=== PATIENT | male | born 1975 | race Caucasian/White ===

== ENCOUNTER 2022-03-26 10:06 | Emergency (ER) | payer BC, SELFPAY ==
[2022-03-26 10:09] VITALS: BP 176/104; PULSE 103; RESP 20; TEMP 36.5; O2SAT 100; BMI 35.2
[2022-03-26] MEDS: Lidocaine HCl 2 % MPF 5 ML VIAL SUBCUT (11:09)
--- NOTE | 2022-03-26 11:19 | ED_ITS ---
HPI - Skin/Abscess/Foreign Bdy General Chief complaint: Skin/Abscess/Foreign Body Stated complaint: wound on R hand Time Seen by Provider: 03/26/22 10:34 Source: patient Mode of arrival: ambulatory Limitations: no limitations History of Present Illness HPI narrative: The patient is a 46 year old male presenting with an abscess of the ulnar aspect of the right hand that developed 5 days ago. The patient reports that approximately 6 weeks ago the head of a nail went into his hand, the injury was healing well, untill he was clenaing his pool last week. The patient states he believes the chemicals irritated the skin, and then his abscess developed a few days after. The patient reports both his and himself have popped the abscess at least two times in the past few days, though only blood came out. He reports pain at rest, and increase pain with palpation and movement. The patient denies any fever, chills, rash or other systemic signs. He reports he is up to date on Tentnus. complaint: abscess/boil Onset (ago): day(s) (5) Tetanus up to date: yes Location: R hand Severity: moderate Quality: sharp and constant Pain Consistency: constant Exacerbating factors: palpation and movement Context: other (Penetration with nail head ) Associated symptoms: denies other symptoms Treatments prior to arrival: attempted to drain pus at home Related Data Previous Rx's Medication Instructions Recorded cephalexin 500 mg capsule 500 mg PO QID 7 days #28 caps 03/26/22 Allergies Allergy/AdvReac Type Severity Reaction Status Date / Time No Known Allergies Allergy Unverified 03/04/20 14:56 [No Known Allergies*] Review of Systems Review of Systems: Constitutional :? Denies history of same, Denies any other sites involved, Denies IV drug use, Denies history of MRSA, Denies swollen glands, Denies injury, Denies Fever, Denies Chills, + Sig Pain, Denies Systemic symptoms Cardiovascular : No Chest Pain, No SOB Respiratory : No Dyspnea Gastrointestinal : No abdominal pain Musculoskeletal : No Joint Swelling Skin : + abscess on right hand with surrounding erythema, No skin laceration, No Foreign bodies, No spreading rash, Denies bites, Denies discharge, Neuro : No Weakness, No Numbness/tingling Yes all other systems are reviewed and are negative [facility] Social History Social History Advance Directives: No Advance Directives Information Provided: No Physical Exam Vital Signs: Vital Signs: Last Vital Signs Temp 97.7 F 03/26/22 10:09 Pulse 103 H 03/26/22 10:09 Resp 20 03/26/22 10:09 BP 176/104 H 03/26/22 10:09 Pulse Ox 100 03/26/22 10:09 O2 Del Method 03/26/22 10:09 BMI result Body Mass Index 35.2 Vital signs have been reviewed as normal and appeared to be correct. Blood pressure normal.? Heart rate normal.? Respiration rate normal. Temperature norm al.? Oxygen saturation normal. Appearance: Alert.?Oriented to person, place and time. No acute distress.?Normal affect. Eyes: Pupils equal, round and reactive to light.? ENT: Pharynx normal.?? Neck: Normal inspection.? Neck supple.?? CVS: Heart sounds normal. Normal heart rate and rhythm.? Pulses normal.?? Respiratory: No respiratory distress.? Lung sounds clear to auscultation bilaterally?? Abdomen: Soft and non-tender. Skin: Small skin abscess aproxametly 3.5 cm x 1 cm located on the ulnar/ lateral aspect of the right palm with surrounding erythema. Skin warm and dry.? Normal skin color. No Lacerations? ?? Extremities: No lower extremity edema.? Neuro: Moves all extremities spontaneously. Sensation intact bilaterally. No motor deficits.. Ambulates with normal steady gait. Course Course Course Narrative: 11:15 am -46 year old male presenting with an abscess of the ulnar/ lateral aspect of the right hand aproxametly 3.5 cm x 1cm that developed 5 days ago. The patient denies any signs of systemic infection, SIRS cirteria not met at this time, low suspicion for sepsis. Plan: -I&D abscess -D/C with PO antibiotics and plan to f/u with PCP or ER in a few days. Reevaluation(s) Reevaluation #1: I&D of abscess with a 11 blade. Minimal puss expressed, fluid primarily blood and a few clots , tolerated the procedure well. given presence of surrounding erythema, will cover prophylactically with cephalexin. Reviewed worrisome signs symptoms to return back to emergency department for. All questions were answered. Patient discharged home in stable condition. Time: 12:07 Procedures Abscess I/D Site: hand Side (if applicable): right Local Anesthetic: lidocaine 1% Amount of anesthesia used (mL): 2 Technique: incised with blade Amount of fluid expressed (mL): 5 Sent for culture/gram staining?: No Irrigation: Yes Packing used?: none Complications: pain and bleeding Discharge Plan Discharge Clinical Impression: Abscess of skin or subcutaneous tissue Patient Disposition: Home, Self-Care Instructions: Abscess (ED), Incision and Drainage (ED) Additional Instructions: Please complete the entire course of antibiotics as prescribed there to antibiotics to take for 1 week. You should have this re-evaluated in 2-3 days you may return back to emergency department or contact your primary care provider. Return to emergency department with any new or worsening symptoms or concerns. If you develop fevers, chills, increasing redness, pain, swelling, pus-like drainage, numbness or tingling to the hand, should be re-evaluated right away. Prescriptions: New cephalexin 500 mg capsule 500 mg PO QID 7 Days Qty: 28 0RF Referrals: Oleksandr Green III, MD [Primary Care Provider] - Interventions: ED Discharge Assessment Last Done: 03/26/22 12:32 Discharge Date/Time: 03/26/22 12:33
== END 2022-03-26 12:33 | disposition home or self-care (01) ==
PROVIDERS: Emergency Provider Emergency Medicine; PCP Internal Medicine
DX: L02.511 Cutaneous abscess of right hand (principal)
CPT/HCPCS: 10060; 73130; 99283; 99284

== ENCOUNTER 2022-03-27 14:05 | Emergency (ER) | payer OTHER, BC, SELFPAY ==
--- NOTE | ~2022-03-27 | XR_ITS ---
EXAMINATION: XR FOOT, RIGHT CLINICAL INFORMATION: Right foot pain and swelling after injury COMPARISON: None TECHNIQUE: AP, lateral, and oblique views of the right foot. FINDINGS: There is a double density at the calcaneus with abnormal lucencies, suggestive of calcaneal fracture. CT evaluation suggested toward further clarification. The metatarsals appear intact. No focal midfoot abnormality. XR/XR foot RT min 3V IMPRESSION: Findings suggestive of calcaneal fracture. CT evaluation suggested toward further clarification.
--- NOTE | ~2022-03-27 | XR_ITS ---
EXAMINATION: XR KNEE, RIGHT CLINICAL INFORMATION: Right knee axial loading injury COMPARISON: None TECHNIQUE: Four views of the right knee. FINDINGS: Femoral condyles appear to be intact. No distinct abnormal joint space narrowing medially or laterally. No significant suprapatellar effusion. Patella appears intact. XR/XR knee RT 4V IMPRESSION: No evidence for acute process.
--- NOTE | ~2022-03-27 | XR_ITS ---
EXAMINATION: XR ANKLE, RIGHT 3 views CLINICAL INFORMATION: Pain and swelling status post injury COMPARISON: None TECHNIQUE: AP, lateral, and mortise views of the right ankle. FINDINGS: There is been previous fixation of the right ankle with plate and screws at the distal right fibula and an oblique screw in the medial malleolus. Tiny calcifications are seen medial to the medial malleolus which could potentially reflect tiny chip fragments although the finding could be chronic. There is prominent narrowing of the tibiotalar joint with spurring changes. No distinct osteochondral lesion. Plantar calcaneal spur noted. Small ossicles adjacent to the lateral aspect of the talus. There is a double density at the calcaneus with an obliquely directed lucency. A calcaneal fracture is considered. XR/XR ankle RT min 3V IMPRESSION: Findings suggestive of calcaneal fracture. CT evaluation suggested toward further clarification. Prominent degenerative and postsurgical changes. Tiny calcifications medial to the medial malleolus could reflect minimal chip fragments although the finding could be chronic. There are no old films for comparison.
[2022-03-27 14:50] VITALS: BP 141/88; PULSE 91; RESP 16; TEMP 36.5; O2SAT 100; BMI 35.2
--- NOTE | 2022-03-27 16:02 | ED_ITS ---
HPI - Extremity Injury (Lower) General Chief Complaint: Extremity Injury, Lower Stated Complaint: R FOOT INJ AT WORK Time Seen by Provider: 03/27/22 15:57 Source: patient Mode of arrival: ambulatory Limitations: no limitations History of Present Illness HPI Narrative: 47 year old male presents to the ED w/ right sided foot pain, particularly to the right heel, patient tells me he was on a boon lift at work and the left went down very fast hitting the ground, he tells me he went up in the air and then hit the ground landing on his right foot he tells me that when he hit the ground he fell over as his foot was still in a stirrup immediately started experiencing severe pain to the right heel, he tells me he also felt some pain to the arch of his foot. He tells me since then he has noted significant swelli ng and pain with range of motion of fingers. Patient describes the pain as 10/10. Patient denies numbness, tingling, back pain, difficulties with range of motion to other leg or knee, hip on the same side. When patient fell he did not hit his head, no loss of consciousness. This was work related injury Related Data Previous Rx's Medication Instructions Recorded cephalexin 500 mg capsule 500 mg PO QID 7 days #28 caps 03/26/22 oxycodone 5 mg tablet 5 mg PO Q8H PRN pain #10 tabs 03/27/22 Allergies Allergy/AdvReac Type Severity Reaction Status Date / Time No Known Allergies Allergy Unverified 03/04/20 14:56 [No Known Allergies*] Review of Systems Review of Systems: Constitutional : No Weight loss, No Fever, No Chills, No Fatigue, No Malaise ENT/Mouth : No sore throat, No Rhinorrhea Eyes: No Eye Pain, No Swelling, No Redness Cardiovascular : No Chest Pain, No SOB, No Dyspnea on Exertion, No Orthopnea, No Edema, No Palpitations Respiratory : No Cough, No Sputum, No Wheezing Gastrointestinal : No Nausea, No Vomiting, No Diarrhea, No Constipation, No abdominal Pain, No Hematochezia, No Melena Genitourinary : No Dysuria, No Urinary Frequency, No Hematuria, Musculoskeletal : No joint pain, No Myalgias, No Joint Swelling Skin : No Skin Lesions, No rash Neuro : No Weakness, No Numbness, No Dizziness, No Headache Psych : No Anxiety/Panic, No Depression All other systems reviewed and are negative Yes all other systems are reviewed and are negative [facility] Past Medical History Attestation statement: The following information was validated with the patient. Source: old records reviewed and nursing notes reviewed Physical Exam Vital Signs: Vital Signs: Last Vital Signs Temp 97.7 F 03/27/22 14:50 Pulse 91 03/27/22 14:50 Resp 16 03/27/22 14:50 BP 141/88 H 03/27/22 14:50 Pulse Ox 100 03/27/22 14:50 O2 Del Method 03/27/22 14:50 BMI result Body Mass Index 35.2 vital signs stable Appearance: Alert.? Oriented X3.? No acute distress.? Head: Normocephalic, atraumatic, no step-offs or deformities Eyes: Pupils equal, round and reactive to light.? ENT: Pharynx normal.? Neck: Normal inspection.? Neck supple.? CVS: Normal heart rate and rhythm.? Pulses normal.? Respiratory: No respiratory distress.? Breath sounds normal.? Abdomen: Soft and nontender.? Skin: Skin warm and dry.? Normal skin color.? Normal skin turgor.? Extremities: No lower extremity edema.? No calf ttp. 5/5 strength to bilateral upper and lower extremities. Patient with swelling to the right heel area, pain with palpation to right heel. Normal left foot. 2+ dorsalis pedis, posterior tibialis and anterior tibialis pulses equal bilateral. No footdrop. Normal sensation to bilateral lower extremities. Capillary refill within normal limits bilaterally to lower extremities. Patient unable to bear weight to right lower extremity. Neuro: Oriented X 3.? No motor deficit.? No sensory deficit. CN 2-12 intact Course Reevaluation(s) Reevaluation #1: x-ray showing calcaneal fracture on the right. Patient will be placed in a posterior splint with extra bulky dressing, patient will be given crutches and has been instructed to be nonweightbearing. Will have him follow-up with orthopedics. I did spend time explaining to patient's signs of compartment syndrome and what to lookout for. Advised to return with new or worsening symptoms. Outlined on discharge. Comfortable discharge home. Patient will be sent home with a short supply of oxycodone, went over safe use of this medication. Advised him to only take this medication with severe pain, advised him to avoid alcohol and to not drive or operate machinery while taking this, also told him that this medication is only to be used by him and not to be share with other people. Patient verbalizes understanding. Comfortable discharge Time: 16:06 Reevaluation #2: After placement of splint patient's neurovascular status intact, patient will follow-up with the orthopedic team, patient was given crutches, educated on proper use and he demonstrated proper use. Patient received oxycodone the department patient's will drive him home. Time: 16:22 MDM - Extremity Injury (Lower) MDM Narrative Medical decision making narrative: 1600 47-year-old male presents with right heel pain status post work related injury, denying numbness and tingling, unable to bear weight to the right lower extremity. This injury happened today. Physical examination significant for swelling to the right heel, neurovasc ularly intact, patient unable to bear weight to right lower extremity. Point tenderness to palpation around the right heel. Concerns for high impact injury such as calcaneal fracture, or ankle fracture. Unlikely dislocated. Neurovascularly intact. No signs of compartment syndrome on exam. No signs of evident acute ligament in tears. Plan at this time is to obtain imaging No back pain, Low suspicion for compression fractures, no signs of cauda equina, no saddle paresthesias, normal reflexes bilateral lower extremities. No red flag symptoms such as urinary / bowel incontinence/retention. Medical Records Attestation: I reviewed the patient's medical records. Lab Data Attestation: I reviewed the patient's lab results. Critical Care Time Critical Care Time Critical Care Time: No Discharge Plan Discharge Clinical Impression: Calcaneal fracture, Fall, Work related injury Patient Disposition: Home, Self-Care Instructions: Crutch Instructions (ED), Foot Fracture in Adults (ED), Calcaneal Fracture (ED), R.I.C.E. Treatment (ED) Additional Instructions: Take your medications as prescribed. If you were prescribed antibiotics today, it is important that you take your medication to their entirety, do not skip any doses, do not finish them early. Follow-up with your primary care provider this week. Return to the emergency department with new or worsening symptoms. Such as fevers, chills, chest pain, shortness of breath, nausea, vomiting, dizziness, headache, vision changes, lethargy , back pain loss of bladder or bowel control, numbness, tingling, loss of sensation, severe swelling, severe pain In case of emergency call 911 Please follow-up with the work connection. I educated on signs of compartment syndrome, you need to follow-up with orthopedics as soon as possible. Return if you cannot feel your foot, increased swelling, severe pain, loss of sensation or any new or worsening symptoms. You are not to bear weight to the right lower extremity. Please use crutches as prescribed. Please read the handout provided. I attest that I have reviewed patients [employer], and at the time prescribing the patient a controlled substance is appropriate based off of patients diagnosis and treatment plan. Prescriptions: New oxycodone 5 mg tablet 5 mg PO Q8H PRN (Reason: pain) Qty: 10 0RF Rx Instructions: Partial Fill upon patient request. No Action cephalexin 500 mg capsule 500 mg PO QID 7 Days Qty: 28 0RF Referrals: Oleksandr Green III, MD [Primary Care Provider] - 2 days Stand Alone Forms: Work/School Release
[2022-03-27] MEDS: oxyCODONE HCl Immed Release 5 MG TABLET PO (16:17)
== END 2022-03-27 17:02 | disposition home or self-care (01) ==
PROVIDERS: Emergency Provider Emergency Medicine; PCP Internal Medicine
DX: S92.001A Unspecified fracture of right calcaneus, initial encounter for closed fracture (principal); X50.1XXA Overexertion from prolonged static or awkward postures, initial encounter; Y93.89 Activity, other specified; Y92.9 Unspecified place or not applicable; Y99.0 Civilian activity done for income or pay
CPT/HCPCS: 29515; 73564; 73610; 73630; 99283; 99284

== ENCOUNTER 2022-03-30 | Outpatient (REF) | payer OTHER, BC, SELFPAY ==
--- NOTE | ~2022-03-30 | XR_ITS ---
EXAMINATION: XR CALCANEUS, RIGHT CLINICAL INFORMATION: Calcaneal fracture. COMPARISON: Radiographs right ankle and foot 03/27/2022. TECHNIQUE: Lateral and axial views of the right calcaneus were obtained for 2 views. FINDINGS: There is comminuted fracture involving the mid to anterior calcaneus best appreciated on the axial view. The retrocalcaneal recess is preserved. There is punctate posterior and moderate plantar calcaneal spur. No dislocation. Again, post surgical changes are seen distal fibula and tibia. Visualized hardware intact. There are degenerative changes ankle joint with joint narrowing and spurring anterior and posterior tibia and dorsal anterior talus. XR/XR calcaneus RT min 2V IMPRESSION: Comminuted fracture mid to anterior calcaneus best appreciated on axial view. CT hindfoot would be helpful for further characterization.
== END 2022-03-30 00:01 | disposition home or self-care (01) ==
LOC: HO.HOSX
PROVIDERS: Visit Provider Physician Assistant
DX: S92.001A Unspecified fracture of right calcaneus, initial encounter for closed fracture (principal)
CPT/HCPCS: 73650; 99202

== ENCOUNTER 2022-04-14 09:04 | Outpatient (REF) | payer OTHER, BC, SELFPAY ==
--- NOTE | ~2022-04-14 | CT_ITS ---
EXAMINATION: CT FOOT WITHOUT CONTRAST, RIGHT CLINICAL INFORMATION: Calcaneal fracture. COMPARISON: X-ray 03/30/2022. TECHNIQUE: Axial imaging. Sagittal and coronal reconstructions. This CT examination was performed using dose optimization techniques as appropriate, variously including the following: *Automated exposure control *Adjustment of mA and/or kV according to patient size (this includes techniques or standardized protocols for targeted exams where dose is matched to indication/reason for exam; i.e. extremities or head) *Use of iterative reconstruction technique DLP: 180 mGy-cm FINDINGS: There is a markedly comminuted, displaced calcaneal fracture. This includes a longitudinally oriented fracture plane in the medial aspect of the calcaneus, involving the posterior/mid calcaneus. There are extensive comminuted fracture planes in the mid/anterior calcaneus. Bony displacement medially and laterally. Multiple fracture planes extend through the posterior facet into the posterior subtalar joint; this includes fracture plane with displacement of approximately 5 mm. (Transverse). Comminuted fracture planes extend to the articular surface at the calcaneocuboid joint, with displacement and disruption of the articular surface. There are prominent fracture planes extending into the sustentaculum talus and intra-articular extension in the middle subtalar joint. Postsurgical changes with hardware in the distal fibula, and old, healed distal fibular fracture. There is an old, healed distal tibial fracture. There is a screw in the medial malleolus. Severe talocrural joint arthritis, marked joint space loss, osteophytes, sclerosis. Small ossific densities adjacent to the fibula, could be related to old trauma versus loose bodies. Small ossifications proximal to the navicula, probable ossicles. Limited evaluation of the tendons, with the proximal tendons grossly appearing intact. Achilles tendon is grossly intact. CT/CT foot RT wo IV con IMPRESSION: Markedly comminuted displaced intra-articular calcaneal fracture, as described above. Intra-articular fracture involves the posterior subtalar joint, middle subtalar joint, and the calcaneocuboid joint. Severe talocrural joint arthritis. Small ossifications adjacent to the lateral malleolus, could represent sequelae of trauma versus loose bodies. Status postsurgical fixation of a distal fibular healed fracture. Healed distal tibial fracture. Additional findings and details as above.
== END 2022-04-14 09:05 | disposition home or self-care (01) ==
LOC: HO.CT 09:04
PROVIDERS: PCP Internal Medicine; Visit Provider Physician Assistant
DX: S92.001A Unspecified fracture of right calcaneus, initial encounter for closed fracture (principal)
CPT/HCPCS: 73700

== ENCOUNTER → 2022-04-26 12:07 | Outpatient (BNVA) | payer OTHER, BC, SELFPAY | PROVIDERS: PCP Internal Medicine; Visit Provider Physician Assistant | DX: S92.001D Unspecified fracture of right calcaneus, subsequent encounter for fracture with routine healing (principal) | CPT/HCPCS: 29405 ==

== ENCOUNTER → 2022-05-16 12:46 | Outpatient (BNVA) | payer OTHER, BC, SELFPAY | PROVIDERS: PCP Internal Medicine; Visit Provider Physician Assistant | DX: S92.001A Unspecified fracture of right calcaneus, initial encounter for closed fracture (principal) | CPT/HCPCS: 29405; 99212 ==

== ENCOUNTER 2022-05-31 07:07 | Outpatient (REF) | payer OTHER, BC, SELFPAY ==
--- NOTE | ~2022-05-31 | XR_ITS ---
EXAMINATION: XR calcaneus RT min 2V CLINICAL INFORMATION: Reason for Exam S92.001A - Unspecified fracture of right calcaneus, initial encounter fo... COMPARISON: Foot radiographs 03/30/2022, foot CT 04/14/2022 TECHNIQUE: Two views of the calcaneus XR/XR calcaneus RT min 2V FINDINGS/IMPRESSION: * Redemonstration of a comminuted fracture of the calcaneus, with some decreased conspicuity of the fracture margins which may reflect ongoing healing. * Stable chronic postsurgical deformity of the distal tibia with a fibular surgical screw and tibial plate and screw fixation. * Severe osteoarthritis of the ankle with loss of tibiotalar and talocalcaneal joint space. * Trace tibiotalar joint effusion.
== END 2022-05-31 07:08 | disposition home or self-care (01) ==
LOC: HO.HOSX 07:07
PROVIDERS: Visit Provider Physician Assistant
DX: S92.001A Unspecified fracture of right calcaneus, initial encounter for closed fracture (principal)
CPT/HCPCS: 73650

== ENCOUNTER 2022-07-12 13:57 | Outpatient (REF) | payer BC, SELFPAY ==
--- NOTE | ~2022-07-12 | XR_ITS ---
EXAMINATION: XR CALCANEUS, RIGHT CLINICAL INFORMATION: Fracture of the right calcaneus COMPARISON: 05/31/2022 TECHNIQUE: Lateral and axial views of the right calcaneus were obtained. FINDINGS: Screw fixation noted at the medial malleolus. Plate and screw fixation hardware seen at the distal lower leg. The calcaneal fracture has unchanged alignment. Persistent cortical offset. There is some callus formation. Prominent plantar heel spur. Diffuse osteopenia. XR/XR calcaneus RT min 2V IMPRESSION: Unchanged alignment of the calcaneal fracture with some callus formation.
== END 2022-07-12 13:58 | disposition home or self-care (01) ==
LOC: HO.HOSX 13:57
PROVIDERS: Visit Provider Physician Assistant
DX: S92.001D Unspecified fracture of right calcaneus, subsequent encounter for fracture with routine healing (principal)
CPT/HCPCS: 73650

== ENCOUNTER 2022-08-23 14:20 | Outpatient (REF) | payer BC, SELFPAY ==
--- NOTE | ~2022-08-23 | XR_ITS ---
EXAMINATION: XR CALCANEUS, RIGHT CLINICAL INFORMATION: Calcaneal fracture COMPARISON: 07/12/2022 TECHNIQUE: Lateral and axial views of the right calcaneus were obtained. FINDINGS: Distal tibial and talocalcaneal surgical hardware without evidence of hardware complication and degenerative changes of the tibiotalar joint. Unchanged alignment of the calcaneal fracture with surrounding callus formation. XR/XR calcaneus RT min 2V IMPRESSION: Unchanged alignment of the calcaneal fracture with surrounding callus formation. No evidence of hardware complication.
== END 2022-08-23 14:21 | disposition home or self-care (01) ==
LOC: HO.HOSX 14:20
PROVIDERS: Visit Provider Physician Assistant
DX: S92.001A Unspecified fracture of right calcaneus, initial encounter for closed fracture (principal)
CPT/HCPCS: 73650; 99212

== ENCOUNTER 2022-08-25 10:04 | Emergency (ER) | payer BC, SELFPAY ==
--- NOTE | ~2022-08-25 | CT_ITS ---
EXAMINATION: CT ABDOMEN AND PELVIS WITHOUT CONTRAST CLINICAL INFORMATION: Abdominal pain, diarrhea, leukocytosis. COMPARISON: None. TECHNIQUE: Multidetector volumetric imaging was performed from the superior aspect of the liver through the pubic symphysis. Sagittal and coronal reformatted images were obtained on the technologist's workstation. This CT examination was performed using dose optimization techniques as appropriate, variously including the following: *Automated exposure control *Adjustment of mA and/or kV according to patient size (this includes techniques or standardized protocols for targeted exams where dose is matched to indication/reason for exam; i.e. extremities or head) *Use of iterative reconstruction technique DLP: 925 mGy-cm FINDINGS: LUNG BASES: No focal consolidation or pleural effusion. A 2 mm nodule in the right lung base (4:133) seems to be intrabronchial and likely represents mucous secretions. LIVER, GALLBLADDER, AND BILIARY TREE: The liver is enlarged measuring 19.4 cm craniocaudally and demonstrates decreased parenchymal attenuation most suggestive of hepatic steatosis. No discrete focal liver lesion noted in this limited noncontrast examination. Normal appearance of the gallbladder. No biliary duct dilatation. PANCREAS: Limited noncontrast examination. No peripancreatic fat stranding or free fluid. The main duct is nondilated. SPLEEN: Unremarkable. ADRENAL GLANDS: Unremarkable. KIDNEYS AND URETERS: Limited noncontrast examination. No nephrolithiasis or hydronephrosis. No perinephric fat stranding. BLADDER: Unremarkable. GASTROINTESTINAL TRACT: Nonspecific gastric distention. The small bowel is nondilated. Normal appendix. Colonic diverticulosis without pericolonic inflammatory changes to suspect acute diverticulitis. No evidence of bowel obstruction. ABDOMINAL WALL: No significant hernia is appreciated. LYMPH NODES: No pathologically enlarged lymph nodes. VASCULAR: Limited noncontrast examination. Atherosclerotic disease. Abdominal aorta is of normal diameter. PELVIC VISCERA: Unremarkable. OSSEOUS STRUCTURES: No acute or aggressive appearing osseous abnormalities. CT/CT abdomen pelvis wo IV con IMPRESSION: The lack of intravenous contrast limits evaluation of the solid visceral organs including the liver, spleen, pancreas, and kidneys. 1. Hepatomegaly and hepatic steatosis. 2. Diverticulosis but no evidence of acute diverticulitis. 3. Nonspecific gastric distention, recommend correlation with recent postprandial state, gastroparesis or gastric outlet obstruction.
[2022-08-25 10:44] VITALS: BP 155/96; PULSE 115; RESP 18; TEMP 36.4; O2SAT 96; BMI 38.8
--- NOTE | 2022-08-25 11:25 | MHC.EDTECH ---
Labs/covid collected and sent
[2022-08-25 11:27] LABS: MANUAL DIFF FLAG NO
[2022-08-25 11:28] LABS: Basophils Percent Auto 0.2 % (0-2); Eosinophils Percent Auto 0.1 % (0-4); Hematocrit 40.9 % (42.0-52.0); Hemoglobin 13.8 g/dl (14.0-18.0); Imm Gran Abs Auto 0.08 X10*3/uL (0.00-0.03); Imm Gran Pct Auto 0.5 % (0.0-0.4); Lymphocytes Absolute Auto 3.3 X10*3/uL (1.2-4.9); Lymphocytes Percent Auto 19.9 % (20-40); Mean Corpuscular HGB Conc 33.7 g/dl (31.0-36.0); Mean Corpuscular Hemoglobin 30.1 pg (27.0-33.0); Mean Corpuscular Volume 89.3 fL (80.0-98.0); Mean Platelet Volume 9.8 fL (9.4-12.4); Monocytes Percent Auto 5.8 % (2-11); Neutrophils Absolute Auto 12.3 x10*3/uL (2.0-8.3); Neutrophils Percent Auto 73.5 % (45-73); Platelet Count 315 X10*3/uL (160-400); Red Blood Count 4.58 X10*6/uL (4.60-5.80); Red Cell Distribution Width 13.9 % (11.0-16.0); White Blood Count 16.7 X10*3/uL (4.8-10.8)
[2022-08-25 11:43] LABS: Alanine Aminotransferase 37 U/L (0-40); Albumin Level 4.7 g/dL (3.5-5.0); Alkaline Phosphatase 84 U/L (39-117); Anion Gap 14 (12-20); Aspartate Amino Transferase 25 U/L (5-37); Bilirubin Total 0.4 mg/dL (0.0-1.0); Blood Urea Nitrogen 13 mg/dL (9-16); Calcium 9.3 mg/dL (8.4-10.2); Carbon Dioxide 24 mmol/L (22-29); Chloride 105 mmol/L (96-108); Creatinine Clr Calc Pharmacy 122.4; Estimated Glomerular Filt Rate > 60; Glucose Random 95 mg/dL (60-115); Potassium 4.1 mmol/L (3.3-5.1); Sodium 139 mmol/L (135-145); Total Protein 7.4 g/dL (6.5-8.0)
[2022-08-25 12:31] LABS: Influenza A PCR NEGATIVE (Negative); Influenza B PCR NEGATIVE (Negative); Resp Syncy Virus RNA Qual PCR NEGATIVE (Negative); SARS COV2 PCR INHOUSE NEGATIVE (Negative)
--- NOTE | 2022-08-25 15:28 | ED_ITS ---
HPI - Nausea/Vomiting/Diarrhea General Chief complaint: Abdominal Pain <TONY Wilks - Last Filed: 08/25/22 15:34> Stated complaint: vomting, diarrhea <TONY Wilks - Last Filed: 08/25/22 15:34> Time Seen by Provider: 08/25/22 17:16 <TONY Wilks - Last Filed: 08/25/22 15:34> Source: patient and RN notes reviewed <Herminio Flores - Last Filed: 08/25/22 18:58> Mode of arrival: ambulatory <Herminio Flores - Last Filed: 08/25/22 18:58> Limitations: no limitations <Herminio Flores - Last Filed: 08/25/22 18:58> History of Present Illness HPI Narrative: 47-year-old male presents for evaluation of abdominal pain vomiting diarrhea. patient reports his symptoms started about 1 week ago and seemed to be worse over the last 3 days. He believes that his vomitus is full of bile. Patient reports that he has been taking ibuprofen aspirin alternating for the last few months since required foot surgery. he also reports that he took an antibiotic for few days due to what he felt was a dental infection. this is a few days before the onset of the symptoms. The antibiotic he had residual from his foot surgery but he does not know name of the antibiotic the patient denies any recent travel he denies any previous abdominal surgeries he rates his overall discomfort as 4/10. Denies any black or bloody stool <Herminio Flores - Last Filed: 08/25/22 18:58> Related Data Home medications: Home Medications Medication Instructions Recorded Confirmed fluticasone propionate 50 1 - 2 spray intranasal DAILY 03/30/22 08/23/22 mcg/actuation nasal spray,suspension losartan 25 mg tablet 25 mg PO DAILY 03/30/22 08/23/22 naproxen 500 mg tablet 500 mg PO BID 07/12/22 08/23/22 Previous Rx's Medication Instructions Recorded celecoxib 200 mg capsule (Celebrex) 200 mg PO BID 30 days #60 caps 07/14/22 ibuprofen 800 mg tablet 800 mg PO TID PRN swelling 1 month 08/23/22 #90 tabs metoclopramide HCl 10 mg tablet 10 mg PO Q6H PRN nausea and 08/25/22 (Reglan) vomiting #20 tabs omeprazole 20 mg capsule,delayed 20 mg PO DAILY #14 caps 08/25/22 release <TONY Wilks - Last Filed: 08/25/22 15:34> Allergies/Adverse reactions: Allergies Allergy/AdvReac Type Severity Reaction Status Date / Time No Known Allergies Allergy Verified 08/23/22 12:52 [No Known Allergies*] <TONY Wilks - Last Filed: 08/25/22 15:34> Review of Systems Constitutional: Constitutional: Reports as per HPI, Denies chills and Denies fatigue <Herminio Flores - Last Filed: 08/25/22 18:58> Cardiovascular: Cardiovascular: Denies chest pain and Denies dyspnea <Herminio Flores - Last Filed: 08/25/22 18:58> Respiratory: Respiratory: Denies cough and Denies dyspnea <Herminio Flores - Last Filed: 08/25/22 18:58> Gastrointestinal: Gastrointestinal: Reports abdominal pain, Denies consti pation, Reports dyspepsia, Denies fecal incontinence, Reports diarrhea, Reports loose stools, Reports vomiting and Denies hematemesis <Herminio Flores - Last Filed: 08/25/22 18:58> Genitourinary: Genitourinary: Denies difficulty urinating and Denies dysuria <Herminio Flores - Last Filed: 08/25/22 18:58> Endocrine: Endocrine: Denies fatigue <Herminio lFores - Last Filed: 08/25/22 18:58> [facility] Social History Social History: Social History Alcohol intake: current Alcohol intake frequency: holidays/special occasions only Smoked in Last 30 Days: Yes Use of substances other than those prescribed or required for medical reasons: No Advance Directives: No Advance Directives Information Provided: No <TONY Wilks - Last Filed: 08/25/22 15:34> Physical Exam Vital Signs: Vital Signs: Last Vital Signs Temp 97.7 F 08/25/22 18:44 Pulse 103 H 08/25/22 18:44 Resp 16 08/25/22 18:44 BP 141/80 H 08/25/22 18:44 Pulse Ox 94 08/25/22 18:44 O2 Del Method 08/25/22 18:44 BMI result Body Mass Index 38.8 <TONY Wilks - Last Filed: 08/25/22 15:34> Vital Signs: Last Vital Signs Temp 97.7 F 08/25/22 18:44 Pulse 103 H 08/25/22 18:44 Resp 16 08/25/22 18:44 BP 141/80 H 08/25/22 18:44 Pulse Ox 94 08/25/22 18:44 O2 Del Method 08/25/22 18:44 BMI result Body Mass Index 38.8 <Herminio Flores - Last Filed: 08/25/22 18:58> Const: General: cooperative, healthy appearing and comfortable <Herminio Flores - Last Filed: 08/25/22 18:58> Orientation/consciousness: oriented to person, oriented to place, oriented to time and patient oriented x3 <Herminio Flores - Last Filed: 08/25/22 18:58> Limitations: no limitations <Herminio Flores - Last Filed: 08/25/22 18:58> Resp: Effort & Inspection: normal respiratory effort and able to speak in complete sentences <Herminio Flores - Last Filed: 08/25/22 18:58> Auscultation: clear to auscultation bilaterally <Herminio Flores - Last Filed: 08/25/22 18:58> GI: Inspection: Yes normal to inspection and No distended <Herminio Flores - Last Filed: 08/25/22 18:58> Palpation (GI): Soft to palpation, nontender, no guarding and not rigid <Herminio Flores - Last Filed: 08/25/22 18:58> Auscultation: normoactive bowel sounds <Herminio Flores - Last Filed: 08/25/22 18:58> Rectal Exam - Male: Yes deferred <Herminio Flores - Last Filed: 08/25/22 18:58> Skin: General skin exam: no rashes or lesions noted <Herminio Flores - Last Filed: 08/25/22 18:58> Neuro: General: oriented to person, oriented to place, oriented to time and patient oriented x3 <Herminio Flores - Last Filed: 08/25/22 18:58> Cranial nerves: Yes CN's II-XII intact bilaterally and Yes Bilaterally intact EOM present <Herminiodonya Flores - Last Filed: 08/25/22 18:58> Extrem: General: Yes full ROM <Herminio Flores - Last Filed: 08/25/22 18:58> Psych: Appearance: grossly normal <Herminiodonya Flores - Last Filed: 08/25/22 18:58> Course Course Course Narrative: RME - 47 y/o male presents to the ER for evaluation of acid reflex, recurrent vomiting x1.5-2 weeks along with new onset of frequent yellow, watery stool that started this week. Took imodium today and had developed central abdominal pains. Was recently on abx for dental infection. WBC 16.7K, chemistry without any major metabolic derrangments. Plan: add Cdiff, GI panel, CT abd/pelvis <TONY Wilks - Last Filed: 08/25/22 15:34> Reevaluation(s) Reevaluation #1: patient has not had any further diarrhea in the emergency department, he feels better after treatment. I discussed at length with workup with some fluids will be discharged with Protonix, Reglan and GI follow-up for patient encouraged to avoid NSAIDs, aspirin, alcohol, spicy greasy foods as this may trigger further dyspepsia. he will continue the Imodium for the couple of days as needed <Herminio Woodardy - Last Filed: 08/25/22 18:58> Time: 18:54 <Herminio Woodardy - Last Filed: 08/25/22 18:58> Medications Administered Generic Name Dose Route Start Last Admin Trade Name Freq PRN Reason Stop Dose Admin Sodium Chloride 1,000 mls @ 999 mls/hr 08/25/22 18:00 08/25/22 18:50 Ns IV 08/25/22 19:00 999 mls/hr .[id number] MARIE Administration Discontinued Medications Generic Name Dose Route Start Last Admin Trade Name Freq PRN Reason Stop Dose Admin Metoclopramide HCl 10 mg 08/25/22 17:57 08/25/22 18:48 Metoclopramide Hcl 10 Mg/2 Ml Vial IVPUSH 08/25/22 17:58 10 mg ONCE ONE Administration Pantoprazole Sodium 40 mg 08/25/22 17:57 08/25/22 18:48 Pantoprazole Sodium 40 Mg/10 Ml Vial IVPUSH 08/25/22 17:58 40 mg ONCE ONE Administration <TONY Wilks - Last Filed: 08/25/22 15:34> Medications Administered Generic Name Dose Route Start Last Admin Trade Name Freq PRN Reason Stop Dose Admin Sodium Chloride 1,000 mls @ 999 mls/hr 08/25/22 18:00 08/25/22 18:50 Ns IV 08/25/22 19:00 999 mls/hr .[id number] MARIE Administration Discontinued Medications Generic Name Dose Route Start Last Admin Trade Name Freq PRN Reason Stop Dose Admin Metoclopramide HCl 10 mg 08/25/22 17:57 08/25/22 18:48 Metoclopramide Hcl 10 Mg/2 Ml Vial IVPUSH 08/25/22 17:58 10 mg ONCE ONE Administration Pantoprazole Sodium 40 mg 08/25/22 17:57 08/25/22 18:48 Pantoprazole Sodium 40 Mg/10 Ml Vial IVPUSH 08/25/22 17:58 40 mg ONCE ONE Administration <Herminio Flores - Last Filed: 08/25/22 18:58> Medical Decision Making Medical Decision Making MDM Narrative: 47-year-old healthy male presents for evaluation of dyspepsia, vomiting and diarrhea. He had a workup including labs are significant for a nonspecific leukocytosis, electrolytes were without concerning abnormalities. [facility] but did show some concern for gastroparesis versus gastric outlet syndrome. The patient had a C diff test that was negative. GI panel still pending. Patient's vital signs are stable. We will treat with IV fluids, Reglan for the gastroparesis. He has been taking Imodium at home with some relief of his diarrhea today. patient likely has some degree of GERD given his chronic NSAID use, , therefore he was treated with Protonix. Still awaiting GI panel, but the patient likely be discharged with GI follow-up <Herminio Flores - Last Filed: 08/25/22 18:58> Differential Diagnosis heartburn Dyspepsia Gastroparesis Bowel obstruction Ileus Biliary disease Bowel perforation SOFIE C diff Colitis Diverticulitis <Herminio Flores - Last Filed: 08/25/22 18:58> Lab Data MDM Lab Attestation statement: I reviewed the patient's lab results. <Herminio Flores - Last Filed: 08/25/22 18:58> Result Diagrams: 08/25/22 11:23 08/25/22 11:23 <TONY Wilks - Last Filed: 08/25/22 15:34> Labs: Lab Results 08/25/22 08/25/22 08/25/22 Range/Units 11:22 11:23 11:23 WBC 16.7 H (4.8-10.8) X10*3/uL RBC 4.58 L (4.60-5.80) X10*6/uL Hgb 13.8 L (14.0-18.0) g/dl Hct 40.9 L (42.0-52.0) % MCV 89.3 (80.0-98.0) fL MCH 30.1 (27.0-33.0) pg MCHC 33.7 (31.0-36.0) g/dl RDW 13.9 (11.0-16.0) % Plt Count 315 (160-400) X10*3/uL MPV 9.8 (9.4-12.4) fL Immature Gran % (Auto) 0.5 H (0.0-0.4) % Neut % (Auto) 73.5 H (45-73) % Lymph % (Auto) 19.9 L (20-40) % [place] % (Auto) 5.8 (2-11) % Eos % (Auto) 0.1 (0-4) % Baso % (Auto) 0.2 (0-2) % Lymph # (Auto) 3.3 (1.2-4.9) X10*3/uL [place] # (Auto) 1.0 (0.1-1.2) X10*3/uL Eos # (Auto) 0.0 (0.0-0.4) X10*3/uL Baso # (Auto) 0.0 (0.0-0.2) X10*3/uL Abs Immat Gran (auto) 0.08 H (0.00-0.03) X10*3/uL Absolute Neuts (auto) 12.3 H (2.0-8.3) x10*3/uL Absolute Nucleated RBC 0.000 (0.0-0.012) X10*3/uL Nucleated RBC % (auto) 0.0 (0.0-0.2) /100WBC Sodium 139 (135-145) mmol/L Potassium 4.1 (3.3-5.1) mmol/L Chloride 105 (96-108) mmol/L Carbon Dioxide 24 (22-29) mmol/L Anion Gap 14 (12-20) BUN 13 (9-16) mg/dL Creatinine 1.04 (0.5-1.4) mg/dL Estim Creat Clear Calc 122.4 Estimated GFR > 60 Random Glucose 95 (60-115) mg/dL Calcium 9.3 (8.4-10.2) mg/dL Total Bilirubin 0.4 (0.0-1.0) mg/dL AST 25 (5-37) U/L ALT 37 (0-40) U/L Alkaline Phosphatase 84 (39-117) U/L Total Protein 7.4 (6.5-8.0) g/dL Albumin 4.7 (3.5-5.0) g/dL C. difficile Tox B Gene (Negative) Influenza Type A (PCR) NEGATIVE (Negative) Influenza Type B (PCR) NEGATIVE (Negative) RSV RNA Qual (PCR) NEGATIVE (Negative) SARS-CoV-2 RNA (RT-PCR) NEGATIVE (Negative) 08/25/22 Range/Units 16:46 WBC (4.8-10.8) X10*3/uL RBC (4.60-5.80) X10*6/uL Hgb (14.0-18.0) g/dl Hct (42.0-52.0) % MCV (80.0-98.0) fL MCH (27.0-33.0) pg MCHC (31.0-36.0) g/dl RDW (11.0-16.0) % Plt Count (160-400) X10*3/uL MPV (9.4-12.4) fL Immature Gran % (Auto) (0.0-0.4) % Neut % (Auto) (45-73) % Lymph % (Auto) (20-40) % [place] % (Auto) (2-11) % Eos % (Auto) (0-4) % Baso % (Auto) (0-2) % Lymph # (Auto) (1.2-4.9) X10*3/uL [place] # (Auto) (0.1-1.2) X10*3/uL Eos # (Auto) (0.0-0.4) X10*3/uL Baso # (Auto) (0.0-0.2) X10*3/uL Abs Immat Gran (auto) (0.00-0.03) X10*3/uL Absolute Neuts (auto) (2.0-8.3) x10*3/uL Absolute Nucleated RBC (0.0-0.012) X10*3/uL Nucleated RBC % (auto) (0.0-0.2) /100WBC Sodium (135-145) mmol/L Potassium (3.3-5.1) mmol/L Chloride (96-108) mmol/L Carbon Dioxide (22-29) mmol/L Anion Gap (12-20) BUN (9-16) mg/dL Creatinine (0.5-1.4) mg/dL Estim Creat Clear Calc Estimated GFR Random Glucose (60-115) mg/dL Calcium (8.4-10.2) mg/dL Total Bilirubin (0.0-1.0) mg/dL AST (5-37) U/L ALT (0-40) U/L Alkaline Phosphatase (39-117) U/L Total Protein (6.5-8.0) g/dL Albumin (3.5-5.0) g/dL C. difficile Tox B Gene NEGATIVE (Negative) Influenza Type A (PCR) (Negative) Influenza Type B (PCR) (Negative) RSV RNA Qual (PCR) (Negative) SARS-CoV-2 RNA (RT-PCR) (Negative) <TONY Wilks - Last Filed: 08/25/22 15:34> Lab Results 08/25/22 08/25/22 08/25/22 Range/Units 11:22 11:23 11:23 WBC 16.7 H (4.8-10.8) X10*3/uL RBC 4.58 L (4.60-5.80) X10*6/uL Hgb 13.8 L (14.0-18.0) g/dl Hct 40.9 L (42.0-52.0) % MCV 89.3 (80.0-98.0) fL MCH 30.1 (27.0-33.0) pg MCHC 33.7 (31.0-36.0) g/dl RDW 13.9 (11.0-16.0) % Plt Count 315 (160-400) X10*3/uL MPV 9.8 (9.4-12.4) fL Immature Gran % (Auto) 0.5 H (0.0-0.4) % Neut % (Auto) 73.5 H (45-73) % Lymph % (Auto) 19.9 L (20-40) % [place] % (Auto) 5.8 (2-11) % Eos % (Auto) 0.1 (0-4) % Baso % (Auto) 0.2 (0-2) % Lymph # (Auto) 3.3 (1.2-4.9) X10*3/uL [place] # (Auto) 1.0 (0.1-1.2) X10*3/uL Eos # (Auto) 0.0 (0.0-0.4) X10*3/uL Baso # (Auto) 0.0 (0.0-0.2) X10*3/uL Abs Immat Gran (auto) 0.08 H (0.00-0.03) X10*3/uL Absolute Neuts (auto) 12.3 H (2.0-8.3) x10*3/uL Absolute Nucleated RBC 0.000 (0.0-0.012) X10*3/uL Nucleated RBC % (auto) 0.0 (0.0-0.2) /100WBC Sodium 139 (135-145) mmol/L Potassium 4.1 (3.3-5.1) mmol/L Chloride 105 (96-108) mmol/L Carbon Dioxide 24 (22-29) mmol/L Anion Gap 14 (12-20) BUN 13 (9-16) mg/dL Creatinine 1.04 (0.5-1.4) mg/dL Estim Creat Clear Calc 122.4 Estimated GFR > 60 Random Glucose 95 (60-115) mg/dL Calcium 9.3 (8.4-10.2) mg/dL Total Bilirubin 0.4 (0.0-1.0) mg/dL AST 25 (5-37) U/L ALT 37 (0-40) U/L Alkaline Phosphatase 84 (39-117) U/L Total Protein 7.4 (6.5-8.0) g/dL Albumin 4.7 (3.5-5.0) g/dL C. difficile Tox B Gene (Negative) Influenza Type A (PCR) NEGATIVE (Negative) Influenza Type B (PCR) NEGATIVE (Negative) RSV RNA Qual (PCR) NEGATIVE (Negative) SARS-CoV-2 RNA (RT-PCR) NEGATIVE (Negative) 08/25/22 Range/Units 16:46 WBC (4.8-10.8) X10*3/uL RBC (4.60-5.80) X10*6/uL Hgb (14.0-18.0) g/dl Hct (42.0-52.0) % MCV (80.0-98.0) fL MCH (27.0-33.0) pg MCHC (31.0-36.0) g/dl RDW (11.0-16.0) % Plt Count (160-400) X10*3/uL MPV (9.4-12.4) fL Immature Gran % (Auto) (0.0-0.4) % Neut % (Auto) (45-73) % Lymph % (Auto) (20-40) % [place] % (Auto) (2-11) % Eos % (Auto) (0-4) % Baso % (Auto) (0-2) % Lymph # (Auto) (1.2-4.9) X10*3/uL [place] # (Auto) (0.1-1.2) X10*3/uL Eos # (Auto) (0.0-0.4) X10*3/uL Baso # (Auto) (0.0-0.2) X10*3/uL Abs Immat Gran (auto) (0.00-0.03) X10*3/uL Absolute Neuts (auto) (2.0-8.3) x10*3/uL Absolute Nucleated RBC (0.0-0.012) X10*3/uL Nucleated RBC % (auto) (0.0-0.2) /100WBC Sodium (135-145) mmol/L Potassium (3.3-5.1) mmol/L Chloride (96-108) mmol/L Carbon Dioxide (22-29) mmol/L Anion Gap (12-20) BUN (9-16) mg/dL Creatinine (0.5-1.4) mg/dL Estim Creat Clear Calc Estimated GFR Random Glucose (60-115) mg/dL Calcium (8.4-10.2) mg/dL Total Bilirubin (0.0-1.0) mg/dL AST (5-37) U/L ALT (0-40) U/L Alkaline Phosphatase (39-117) U/L Total Protein (6.5-8.0) g/dL Albumin (3.5-5.0) g/dL C. difficile Tox B Gene NEGATIVE (Negative) Influenza Type A (PCR) (Negative) Influenza Type B (PCR) (Negative) RSV RNA Qual (PCR) (Negative) SARS-CoV-2 RNA (RT-PCR) (Negative) <Herminio Flores - Last Filed: 08/25/22 18:58> Radiology Impression Discussion of test interpretation with radiology: I have reviewed the radiologist's reading. <Herminio Flores - Last Filed: 08/25/22 18:58> Radiologist Impression: CT scan of abdomen pelvis shows concern for gastroparesis versus gastric outlet obstruction <Herminio Flores - Last Filed: 08/25/22 18:58> Discharge Plan Discharge Clinical Impression: Dyspepsia, Gastroparesis <TONY Wilks - Last Filed: 08/25/22 15:34> Patient Disposition: Home, Self-Care <TONY Wilks - Last Filed: 08/25/22 15:34> Additional Instructions: your workup showed some degree of gastroparesis which is slow intestinal movements. this will likely cause nausea, take the Reglan to help with the nausea and vomiting. your use of NSAIDs ibuprofen, aspirin over the last 2 months has likely c ontributed to GERD. taking omeprazole daily for the next 2 weeks follow-up with GI, Dr. Gan at the number provided you may continue to use Imodium as needed for diarrhea <TONY Wilks - Last Filed: 08/25/22 15:34> Prescriptions: New omeprazole 20 mg capsule,delayed release(DR/EC) 20 mg PO DAILY Qty: 14 0RF metoclopramide HCl [Reglan] 10 mg tablet 10 mg PO Q6H PRN (Reason: nausea and vomiting) Qty: 20 0RF No Action celecoxib [Celebrex] 200 mg capsule 200 mg PO BID 30 Days Qty: 60 3RF naproxen 500 mg tablet 500 mg PO BID losartan 25 mg tablet 25 mg PO DAILY fluticasone propionate 50 mcg/actuation spray,suspension 1 - 2 spray intranasal DAILY ibuprofen 800 mg tablet 800 mg PO TID PRN (Reason: swelling) 30 Days Qty: 90 3RF <TONY Wilks - Last Filed: 08/25/22 15:34> Referrals: Alo Gan [Physician] - (gastroparesis vs gastric outlet obstruction) <TONY Wilks - Last Filed: 08/25/22 15:34>
[2022-08-25 15:29] VITALS: BP 158/103; PULSE 106; RESP 16; TEMP 37; O2SAT 97
--- NOTE | 2022-08-25 16:46 | MHC.EDTECH ---
pt stool sample collected and sent to lab .
[2022-08-25 18:11] LABS: CDiff Gene PCR NEGATIVE (Negative)
[2022-08-25 18:44] VITALS: BP 141/80; PULSE 103; RESP 16; TEMP 36.5; O2SAT 94
[2022-08-25] MEDS: Pantoprazole Sodium 40 MG/10 ML VIAL IVPUSH (18:48)
[2022-08-25] MEDS: Metoclopramide HCl 10 MG/2 ML VIAL IVPUSH (18:48)
[2022-08-25] MEDS: 0.9 % Sodium Chloride 1,000 ML 999 ML IV (18:50)
[2022-08-26 09:16] LABS: Adenovirus F 40/41 Not Detected (Not Detect.); Astrovirus Not Detected (Not Detect.); Campylobacter Not Detected (Not Detect.); Cryptosporidium Not Detected (Not Detect.); Cyclospora cayetanensis Not Detected (Not Detect.); E. coli EAEC Not Detected (Not Detect.); E. coli EPEC Not Detected (Not Detect.); E. coli ETEC Not Detected (Not Detect.); E. coli STEC Not Detected (Not Detect.); Entamoeba histolytica Not Detected (Not Detect.); Giardia lamblia Not Detected (Not Detect.); Norovirus GI/GII Not Detected (Not Detect.); Plesiomonas shigelloides Not Detected (Not Detect.); Rotavirus A Not Detected (Not Detect.); Salmonella Not Detected (Not Detect.); Sapovirus Not Detected (Not Detect.); Shigella sp./EIEC Not Detected (Not Detect.); Vibrio Not Detected (Not Detect.); Vibrio Cholerae Not Detected (Not Detect.); Yersinia enterocolitica Not Detected (Not Detect.)
== END 2022-08-25 19:28 | disposition home or self-care (01) ==
PROVIDERS: Physician Assistant; Emergency Provider Internal Medicine
DX: R10.9 Unspecified abdominal pain (principal); R11.10 Vomiting, unspecified; K21.9 Gastro-esophageal reflux disease without esophagitis; R10.13 Epigastric pain; K31.84 Gastroparesis; Z20.822 Contact with and (suspected) exposure to COVID-19
CPT/HCPCS: 0241U; 74176; 80053; 85025; 87493; 87507; 96361; 96374; 96375; 99284; J2765